=== PATIENT | female | born 1955 | race Caucasian/White ===

== ENCOUNTER → 2018-12-08 | Outpatient (CLI) | payer MEDICARE, OTHER ==
[~2018-12-08] MED LIST: LISI10TA PO; NAPR220C11 PO; OXYC-12 PO; PRX20T PO; PS30T PO
--- NOTE | 2018-12-08 11:17 | Diagnostic Imaging Report ---
CLINICAL INDICATION: Patient with nasal congestion. Questionable abnormality seen by dentist. EXAM: Axial maxillofacial CT scan performed without IV contrast with coronal reformations. COMPARISON: None. FINDINGS: PARANASAL SINUSES: FRONTAL: Unremarkable. ETHMOID: Unremarkable. MAXILLARY: There is minimal mucosal thickening versus sessile bony exophytic area involving the posterior floor of the left maxillary sinus. There is no concern for neoplastic process. SPHENOID: Unremarkable. OTHER PARANASAL SINUS FINDINGS: The ostiomeatal unit regions are patent. There is piotr bullosa of the right middle nasal turbinate. NASAL SEPTUM: Relatively midline. No significant bony spurs. VISUALIZED TEMPORAL BONE STRUCTURES: Unremarkable. BONY STRUCTURES: Unremarkable. EXTRACRANIAL SOFT TISSUE/ ORBITS: Unremarkable. IMPRESSION: 1: Minimal mucosal thickening versus sessile bony exophytic area involving the posterior floor of the left maxillary sinus. 2: There is piotr bullosa of the right middle nasal turbinate. Otherwise, the remainder of the paranasal sinuses are unremarkable. Dictated by: Dictated on workstation # [id number]
== END ==
LOC: RAD 10:43
PROVIDERS: ATTEND Otolaryngology Otolaryngology/Facial Plastic Surgery
DX: R09.81 Nasal congestion (principal)
CPT/HCPCS: 70486

== ENCOUNTER → 2020-02-20 | Outpatient (CLI) | payer MEDICARE, OTHER ==
--- NOTE | 2020-02-20 10:50 | Diagnostic Imaging Report ---
INDICATION: 65-year-old asymmetric postmenopausal female. COMPARISON: None available. FINDINGS: AP Spine L2-L4: [BMD (g/cm2): 1.394] [T-Score: 1.6] [Z-Score: 2.1] [BMD Previous: NA] [BMD % Change: NA] LT Hip Neck: [BMD (g/cm2): 0.803] [T-Score: -1.7] [Z-Score: -0.9] LT Hip Total: [BMD (g/cm2):1.013] [T-Score:0.0] [Z-Score: 0.5] [BMD Previous: NA] [BMD % Change: NA] RT Hip Neck: [BMD (g/cm2):0.767] [T-Score:-1.9] [Z-Score:-1.2] RT Hip Total: [BMD (g/cm2):1.019] [T-score:0.1] [Z-Score:0.6] [BMD Previous:NA] [BMD % Change:NA] *Indicates significant change from prior examination based on 95% confidence level. World Health Organization criteria for BMD interpretation classify patients as Normal (T-score at or above -1.0), Osteopenic (T-score between -1.0 and -2.5) or Osteoporotic (T-score at or below -2.5). LIMITATIONS AND MODIFICATION: None. IMPRESSION: 1. Osteopenia (Low bone mass). 2. Baseline examination. 3. Consider follow-up DEXA and 12-24 months to reassess bone mineral density. Dictated by: Dictated on workstation # [id number]
== END ==
LOC: RAD 08:59
PROVIDERS: ATTEND Nurse Practitioner Family
DX: Z13.820 Encounter for screening for osteoporosis (principal); M85.80 Other specified disorders of bone density and structure, unspecified site; Z78.0 Asymptomatic menopausal state
CPT/HCPCS: 77080

== ENCOUNTER → 2021-12-30 | Outpatient (CLI) | payer MEDICARE, OTHER ==
--- NOTE | 2021-12-30 11:34 | Diagnostic Imaging Report ---
HISTORY: Right hip pain. TECHNIQUE: Two views of the right hip. COMPARISON: None. FINDINGS: There is moderate joint space loss in the right hip joint. No significant osteophytes or subchondral sclerosis is appreciated. There is no acute fracture in the right hip. Alignment is normal. No focal bony lesions are seen. IMPRESSION: 1. Moderate joint space loss in the right hip with no acute osseous abnormality seen. Dictated by: Dictated on workstation # [id number]
== END ==
LOC: RAD FS 10:11
PROVIDERS: ATTEND Nurse Practitioner Family
DX: M25.551 Pain in right hip (principal)
CPT/HCPCS: 73502

== ENCOUNTER → 2022-09-22 | Outpatient (CLI) | payer MEDICARE, OTHER ==
--- NOTE | 2022-09-22 11:49 | Diagnostic Imaging Report ---
PROCEDURE: US Non-ob pelvis comp/trans. TECHNIQUE: Multiple realtime grayscale images were obtained of the pelvis in various projections endovaginally. Transabdominal imaging was also performed. INDICATION: Postmenopausal bleeding. FINDINGS: Uterus measures 7 x 4 x 7 cm. There is a heterogeneous myometrial mass measuring 4.3 cm. Endometrium is thickened at 1.5 cm. Right ovary and left ovary are not identified. There is bowel gas in the adnexa. There is no free fluid. IMPRESSION: 1. There is thickening of the endometrium for postmenopausal female. There is also a myometrial mass consistent with fibroid measuring 4.3 cm. Dictated by: Dictated on workstation # [id number]
== END ==
LOC: RAD 10:09
PROVIDERS: ATTEND Nurse Practitioner Women's Health
DX: R93.89 Abnormal findings on diagnostic imaging of other specified body structures (principal); N95.0 Postmenopausal bleeding
CPT/HCPCS: 76830; 76856

== ENCOUNTER 2022-11-03 05:29 | Outpatient (CLI) | payer MEDICARE, OTHER ==
[~2022-11-03] VITALS: Ht 165.1 cm; Wt 130.9 kg
[2022-11-04] MEDS ORDERED: VITAMIN D3 (16:32)
[2022-11-04] MEDS ORDERED: LOSA1TAB23 PO (16:32)
[2022-11-04] MEDS ORDERED: NAPR-1070 PO (16:32)
== END 2022-11-04 16:38 | disposition home or self-care (01) ==
LOC: PREOP 05:29
PROVIDERS: ATTEND Obstetrics & Gynecology
DX: Z01.818 Encounter for other preprocedural examination (principal)